=== PATIENT | female | born 2000 | race Caucasian/White ===

== ENCOUNTER 2023-11-09 03:13 | Emergency (ER) | payer BC ==
[~2023-11-09] VITALS: Ht 167.6 cm; Wt 95.3 kg
[~2023-11-09 03:13] MED LIST: PREDNISONE20 MG PO; ULTRAM 50MG50 MG PO
[2023-11-09 03:17] VITALS: PULSE 82; RESP 18; TEMP 98.3; O2SAT 99
[2023-11-09] MEDS ORDERED: MEDROL4 M2 PO (03:22)
[2023-11-09] MEDS ORDERED: ONDANSETRON ODT4 MG SL (03:22)
[2023-11-09] MEDS ORDERED: CYCLOBENZAPRINE5 MG PO (03:22)
[2023-11-09] MEDS ORDERED: ONDANSETRON HCL 4 MG ORAL DISINTEGRATING TAB ONE (03:24)
[2023-11-09] MEDS: ONDANSETRON HCL 4 MG ORAL DISINTEGRATING TAB PO ONE (03:24)
== END 2023-11-09 03:31 | disposition home or self-care (01) ==
LOC: ER 03:15
DX: M54.2 Cervicalgia (principal); R11.0 Nausea
CPT/HCPCS: 99282; Q0162